=== PATIENT | female | born 1980 | race Caucasian/White ===

== ENCOUNTER 2021-04-06 20:21 | Emergency (ER) | payer OTHER ==
[~2021-04-06] VITALS: Ht 167.6 cm; Wt 93.0 kg
[2021-04-06] MEDS ORDERED: ONDANSETRON 4 MG/2 ML VIAL IV ONE (20:45)
[2021-04-06] MEDS ORDERED: HYDROMORPHONE 1 MG/1 ML DISP.SYRIN IV ONE (20:45)
[2021-04-06] MEDS ORDERED: KETOROLAC TROMETHAMINE 30 MG INJ IVP ONE (20:45)
--- NOTE | 2021-04-06 21:01 | NUR ---
Pt bib ra [id number] for left flank pain x 2 days, denies n/v/d.
[2021-04-06] MEDS ORDERED: KETOROLAC TROMETHAMINE 30 MG INJ ONE (21:17)
[2021-04-06] MEDS ORDERED: ONDANSETRON 4 MG/2 ML VIAL ONE (21:17)
[2021-04-06] MEDS ORDERED: HYDROMORPHONE 2 MG/1 ML DISP.SYRIN ONE (21:18)
[2021-04-06 21:28] LABS: *BILIRUBIN,URIN NEGATIVE (NEGATIVE); *BLOOD, URINE 2+ (NEGATIVE); *CLARITY,URINE CLEAR (CLEAR); *COLOR,URINE YELLOW (YELLOW); *KETONES,URINE TRACE (NEGATIVE); *UROBILINOGEN,URINE 0.2 E.U./dl (NORMAL); LEUKOCYTE ESTERASE ,URINE NEGATIVE (NEGATIVE); NITRITE, URINE NEGATIVE (NEGATIVE); PH,URINE 6.5 (5.0-8.0); UGLUCOSE 2+ (NEGATIVE)
[2021-04-06 21:29] LABS: HEMATOCRIT 38.2 % (31.2-41.9); MEAN CORPUSCULAR HEMOGLOBIN 28.8 uug (24.7-32.8); PLATELET COUNT (AUTO) 372 K/uL (179-408)
[2021-04-06 21:34] LABS: CREATININE 0.8 mg/dL (0.6-1.3); POTASSIUM 3.8 mmol/L (3.5-5.1)
[2021-04-06 21:38] LABS: *URINE HCG, QUAL NEGATIVE (NEGATIVE); BACTERIA,URINE FEW /HPF (NONE SEEN); SQUAMOUS EPITHELIAL CELL,UR FEW /HPF (NONE SEEN); WBC,URINE 0-3 /HPF (0-3)
[2021-04-06 21:40] LABS: BILIRUBIN,DIRECT 0.1 mg/dL (0.0-0.2); BILIRUBIN,TOTAL 0.2 mg/dL (0.2-1.0); TOTAL PROTEIN, SERUM 8.5 g/dL (6.4-8.2)
--- NOTE | 2021-04-06 21:44 | NUR ---
lead manufacturing technician Atilio made aware re: CT order.
--- NOTE | 2021-04-06 22:23 | NUR ---
Back from CT.
[2021-04-07] MEDS ORDERED: OXYC-128 PO (00:13)
--- NOTE | 2021-04-07 00:47 | NUR ---
Patient discharged to home in stable condition. Written and verbal after care instructions given. Patient verbalizes understanding of instructions. Stressed follow up or return to ER for worsening s/s. Patient ambulated fr the ER with steady gait. All belongings with patient.
[2021-04-07 01:21] VITALS: BP 135/72
== END 2021-04-07 00:47 | disposition home or self-care (01) ==
LOC: ER 20:23
DX: S39.012A Strain of muscle, fascia and tendon of lower back, initial encounter (principal); X58.XXXA Exposure to other specified factors, initial encounter; Y92.032 Bedroom in apartment as the place of occurrence of the external cause; E11.9 Type 2 diabetes mellitus without complications; D72.829 Elevated white blood cell count, unspecified
CPT/HCPCS: 36415; 74176; 80048; 80076; 81001; 84703; 85025; 96374; 96375; 99284; J1170; J1885; J2405; A4663